=== PATIENT | female | born 1950 | race Caucasian/White ===

== ENCOUNTER 2017-05-14 12:30 | Outpatient (CLI) | payer MEDICARE, OTHER ==
[2015-09-19 12:51] VITALS: BP 144/64
--- NOTE | 2017-05-14 17:06 | Diagnostic Imaging Report ---
EMMA PAIZ [facility] [id number] [facility] [address] [place], [place]. [address] Report Submission Date: May 14, 2017 4:54:43 PM EMPLOYMENT OFFICE CLERK Patient Study Name: MAYRA MADRIGAL Date: May 14, 2017 2:13:04 PM EMPLOYMENT OFFICE CLERK Modality Type: CT\SR Gender: F Description: CT T-SPINE W/O CONTRAS : 52 Institution: [facility] Physician: EMMA PAIZ CT thoracic spine Date of examination: 14 May 2017 CLINICAL HISTORY: PATIENT STATES RE-CHECK OF COMPRESSION FRACTURES (Hx) TECHNIQUE: 3 mm contiguous axial images of the thoracic spine with sagittal and coronal reconstructions. FINDINGS: There is a burst fracture of L1. Retropulsion of bone fragment into the spinal canal measures 7 mm. There is greater than 50% height loss. T 12 shows a burst fracture with 4 mm of retropulsion. Degenerative spurs arise from multiple levels. There are no other fractures. A dextroscoliosis is present. Incidental note is made of a linear infiltrate or atelectasis in the right upper lobe. IMPRESSION: burst fractures of T12 and L1 Dextroscoliosis Thoracic spondylosis Electronically signed on May 14, 2017 4:54:43 PM EMPLOYMENT OFFICE CLERK by: Guy KINNEY
--- NOTE | 2017-05-14 17:07 | Diagnostic Imaging Report ---
EMMA PAIZ [facility] [address] [facility] [address] [place] [address]. [id number] Report Submission Date: May 14, 2017 5:03:02 PM [employer] WHE[employer]S DRIVER Patient Study Name: MAYRA MADRIGAL Date: May 14, 2017 2:18:06 PM MEALS ON WHEELS DRIVER Modality Type: CT\SR Gender: F Description: CT L-SPINE W/O CONTRAS : 52 Institution: [facility] Physician: EMMA PAIZ CT of the lumbar spine Clinical history: PATIENT STATES RE-CHECK OF COMPRESSION FRACTURES Technique: CT of the lumbar spine was performed in contiguous axial slices with sagittal and coronal reconstructions. Findings: There are compression fractures of the superior endplates of the T12 and L1 vertebrae with approximately 40% loss of vertebral height at T12 and 60% in the mid body at L1. There is retropulsion of the posterior superior aspect of the L1 vertebral body into the canal by 5 mm. Residual AP diameter of the canal is 8 mm. The vertebrae are otherwise anatomically aligned. Fracture lines at T12 appear acute in the superior endplate, but the fracture lines at L1 appear healed. There is no other fracture identified. Degenerative facet changes and hypertrophy of ligaments result in slight narrowing of the neural foramina bilaterally at L3/L4. Degenerative changes are seen at L4/L5 with narrowing of the facets. Epidural fat surrounds the exiting roots at this level. Degenerative facet changes at L5/S1 slightly narrow the left neural foramen. Impression: 1. Spondylosis. 2. Compression fractures of L1 and T12 with spinal stenosis at L1. 3. Fracture T12 appears to be acute. Electronically signed on May 14, 2017 5:03:02 PM MEALS ON WHEELS DRIVER by: Jordin KINNEY
--- NOTE | 2017-05-16 09:48 | HISTORY AND PHYSICAL REPORT ---
REFERRING PHYSICIAN: Dr. Tay Russo Dear Tay: HISTORY OF PRESENT ILLNESS: I had the opportunity of seeing Katrin Dunlap today in consultation at [facility]. This is a very nice 66-year-old white female who presents with a chief complaint of thoracolumbar back pain. She said that this occurred in March after she awoke from an umbilical hernia repair. She was initially seen at and apparently underwent workup for mid-epigastric and back pain and there was a concern for esophageal varices or tear and she was referred to the [facility] [place] [facility]. She said at that point, she was diagnosed with a hiatal hernia and went for hiatal hernia repair and awoke with excruciating back pain. She has a history of a chronic T12 compression fracture and we have requested images from the [facility] today on her visit. She complains of pain that is mid-axial and nonradiating and not associated with weakness. She has been wearing a back brace and that has been helping. She has been taking oxycodone 325/7.5 mg 3 to 4 times per day. PAST MEDICAL HISTORY: 1. History of vision problems. 2. Depression. 3. Anxiety. 4. Chronic pain with opiate dependence. 5. High cholesterol. 6. GERD. 7. Diabetes, she appears to be diet controlled. 8. Bipolar type 1. PAST SURGICAL HISTORY: 1. Umbilical hernia repair with recent revision in March. 2. Cholecystectomy. 3. Hysterectomy. CURRENT DAILY MEDICATIONS: 1. Oxycodone 325/7.5 mg q.i.d. 2. Pravastatin 40 mg at bedtime. 3. Nexium 20 mg daily. 4. Flonase 100 mcg daily. 5. Lamictal 200 mg daily. 6. Ambien 10 mg daily. 7. Vitamin B12, 1000 mcg daily. 8. Maxalt 10 mg p.r.n. 9. Singulair 10 mg daily. 10. Senokot 1 tablet b.i.d. 11. Citalopram 20 mg daily. 12. Sucralfate 1 gram b.i.d. ALLERGIES: She has no known drug allergies. SOCIAL HISTORY: She has never used tobacco, alcohol, or recreational drugs. She is . She has 2 children. She lives at home alone. She completed 12 years of schooling. She is not currently employed. Her previous occupation was a on call pharmacy technician. She is disabled due to back pain. FAMILY HISTORY: Mother with diabetes. Siblings with diabetes and cancer. REVIEW OF SYSTEMS: In the last month or so, she reports a weight loss, shortness of breath, unspecified infection, stomach pain or upset stomach, feeling depressed, feeling anxious, and headaches. Pain is worsened with lying, standing, bending , sitting, walking, twisting, getting up from a chair, cough or sneeze, stress, fatigue, getting up in the morning, and in any position for too long. Nothing improves her pain. PHYSICAL EXAMINATION: Vital Signs: BP: 150/75, P: 60, R: 20, oxygen saturation is 98% on room air. HEENT: Pupils are equal, round, and reactive to light and accommodation. Extraocular movements intact. No facial droop. Neck: There is full range of motion of the cervical spine. No evidence of adenopathy. Thyroid is nontender, not enlarged. Carotids are without bruits. Chest: Clear to auscultation bilaterally. Normal chest excursion. Heart: Regular rate and rhythm without murmur. Abdomen: Benign. Normoactive bowel sounds. Motor/sensory: Intact in the upper and lower extremities. Moves all extremities freely. Back: There is a positive Tinel's sign over the thoracolumbar spine. DIAGNOSTIC STUDIES: CT images were obtained today which reveal what appears to be an acute L1 compression fracture and a possible subacute T12 compression deformity, which corresponds to her pain complaints. ASSESSMENT: Acute thoracolumbar compression fractures. PLAN: We will plan on a vertebral augmentation with anesthesia later this week. Dr. Russo, thank you again for allowing me to take part in the care of this nice lady. I appreciate the opportunity to take part in the care of your patients. cc: Dr. Tay KINNEY
== END 2017-05-14 12:32 ==
LOC: OUT 12:30
PROVIDERS: ATTEND Anesthesiology Pain Medicine
DX: M47.814 Spondylosis without myelopathy or radiculopathy, thoracic region (principal); S22.009A Unspecified fracture of unspecified thoracic vertebra, initial encounter for closed fracture; X58.XXXA Exposure to other specified factors, initial encounter; Y93.9 Activity, unspecified; Y92.9 Unspecified place or not applicable
CPT/HCPCS: 72128; 72131

== ENCOUNTER 2018-01-20 10:29 | Day surgery (SDC) | payer MEDICARE, OTHER ==
[2015-09-19 12:51] VITALS: BP 144/64
[~2018-01-20 10:29] MED LIST: LACTATED RINGERS 1,000 ML IV.SOLN IV ONE; LIDOCAINE HCL/PF 2% 100 MG/5 ML VIAL IJ ONE; PROPOFOL 200 MG/20 ML VIAL IV ONE; SALINE FLUSH 10 ML DISP.SYRIN IVF ONE
--- NOTE | 2018-01-21 14:09 | GI Report ---
REFERRING PHYSICIAN: Dr. Tay Russo PAN CLEANER: Darien Kang MD PROCEDURE MEDICATION: Propofol as per anesthesia. INDICATIONS: Patient is a 67-year-old woman who has had a history of a large hiatal hernia. A couple of years ago on endoscopy, I saw a return of her hernia. She had previous surgery about 6 years ago. She had redo surgery last year in March and she did well for a couple of months and in the last couple of months, she has been having problems with satiety and vomiting. She has not been able to eat much. She has lost 20 some pounds in weight. She is not sure if it is because of difficulty swallowing but she is vomiting. She is on a number of medications that do affect motility. She is on Seroquel 400 mg daily. She is on lamotrigine. On exam, she is 5 feet 2 inches. Her weight is 63 kilograms. PROCEDURE PERFORMED: Endoscopy. PROCEDURE: An Olympus video endoscope is passed through the esophagus under direct visualization. There is no motility in the esophagus. There is an opening that is not strictured from the esophagus to the stomach. There is a wrap still in place. Patient has gastroparesis. There is residual food throughout the stomach. No motility. Pylorus is open. There is actually some residual food in the duodenum. FINDINGS: Patient has evidence of gastroparesis with no motility in the esophagus, stomach, or duodenum. DISCUSSION/RECOMMENDATION: 1. She needs to sleep with her bed elevated. 2. She needs to be on a gastroparesis diet. 3. Options are low-dose erythromycin like 125 mg twice daily or if she is bothered with constipation, using Linzess is a consideration starting at the lowest dose of 72 mcg. Concerned about using Reglan because of its neurological side effects. cc: Dr. Tay Russo [facility]
== END 2018-01-20 10:30 ==
LOC: OPSURG 10:29
PROVIDERS: ATTEND Internal Medicine Gastroenterology
DX: K31.84 Gastroparesis (principal); K44.9 Diaphragmatic hernia without obstruction or gangrene; R68.81 Early satiety; R63.4 Abnormal weight loss
CPT/HCPCS: 43235; J2001; J2704; J7120; S1016

== ENCOUNTER 2019-02-11 16:48 | Outpatient (CLI) | payer MEDICARE, OTHER ==
[2015-09-19 12:51] VITALS: BP 144/64
== END 2019-02-11 16:50 ==
LOC: LABRHC 16:48
PROVIDERS: ATTEND Family Medicine
DX: N39.0 Urinary tract infection, site not specified (principal)
CPT/HCPCS: 87086